=== PATIENT | male | born 1955 | race Caucasian/White ===

== ENCOUNTER 2023-01-11 12:46 | Inpatient (IN) ==
[2023-01-11] MEDS ORDERED: NS 0.9% 1000 ml BAG 1,000 ML IV ONE (12:54)
[2023-01-11] MEDS ORDERED: Lorazepam PYXIS KEY PRN (12:55)
[2023-01-11 13:22] LABS: ABS Eosinophils 0.1 10^3/uL (0.0-0.5); ABS Lymphocytes 1.1 10^3/uL (1.0-4.8); ABS Monocytes 0.5 10^3/uL (0.0-1.1); ABS Neutrophils 2.2 10^3/uL (1.5-7.6); ABS Nucleated RBC 0.01 10^3/ul; Eosinophil % 2.4 %; Hematocrit 31.7 % (38-53); Hemoglobin 11.1 g/dL (13.2-16.3); Lymphocyte % 29.3 %; Mean Corpuscular Hemoglobin 32.1 pg (27-33); Mean Corpuscular Volume 91.6 fL (80-97); Mean Platelet Volume 8.7 fL (7.5-11.2); Nucleated Red Blood Cells % 0.2 /100 WBC (0.0-0.4); Platelet Count 149 10^3/uL (150-450); Red Blood Count 3.46 10^6/uL (4.06-5.63); Red Cell Distribution Width 15.5 % (12-17); White Blood Count 3.9 10^3/uL (3.6-10.2)
[2023-01-11] MEDS: Haloperidol 5 mg/ml SDV IV/IM 5 MG/ML AMP IV SLOW PU ONE ×2 (13:23→13:40)
[2023-01-11] MEDS: LORazepam 2 mg VIAL 1 ml IV PUSH ONE ×2 (13:23→13:40)
[2023-01-11 13:39] LABS: ALT 11 U/L (7-52); AST 16 U/L (13-39); Albumin 3.8 g/dL (3.2-5.2); Albumin/Globulin Ratio 1.9 (1-3); Alkaline Phosphatase 68 U/L (35-149); Anion Gap 5 mmol/L (2-16); Blood Urea Nitrogen 22 mg/dL (6-24); CO2 Carbon Dioxide 30 mmol/L (22-32); Calcium 8.8 mg/dL (8.6-10.3); Chloride 108 mmol/L (101-111); Creatinine, Serum 0.87 mg/dL (0.67-1.17); Glucose 92 mg/dL (70-100); Potassium 3.9 mmol/L (3.5-5.0); Sodium 143 mmol/L (135-145); Total Protein 5.8 g/dL (6.4-8.9); eGFR CKD-EPI 95.8 (>60)
[2023-01-11 14:06] LABS: Alcohol, S < 13 mg/dL (<13)
[2023-01-11 14:13] LABS: TSH Ultra Thyroid Stim Horm 1.58 mcIU/mL (0.34-5.60)
[2023-01-11] MEDS ORDERED: Polyethylene Glycol 3350 17 GM PACKET PO PRN (17:05)
[2023-01-11] MEDS ORDERED: Senna TAB 8.6 mg TAB PO PRN (17:05)
[2023-01-11] MEDS ORDERED: Haloperidol LIQ ORALSYR 2 MG/ML PO PRN ×2 (17:11→17:59)
[2023-01-12] MEDS: OLANZapine 5 mg TAB *ODT PO SCH ×3 (01:06→22:14)
[2023-01-12] MEDS: Haloperidol 5 mg/ml SDV IV/IM 5 MG/ML AMP IV SLOW PU PRN ×3 (01:19→15:13)
[2023-01-12] MEDS: Morphine ORAL CONCENTRATE 5 MG/0.25 ML ORAL.SYRIN SL PRN ×2 (01:28→12:38)
[2023-01-12] MEDS ORDERED: Haloperidol 5 mg/ml SDV IV/IM 5 MG/ML AMP IV SLOW PU ONE ×2 (03:23→18:12)
[2023-01-12 04:50] LABS: Urine Appearance Clear; Urine Bilirubin Negative (Negative); Urine Blood Negative (Negative); Urine Color Yellow; Urine Glucose Negative (Negative); Urine Ketones Negative (Negative); Urine Nitrite Negative (Negative); Urine Protein Negative (Negative); Urine Specific Gravity 1.018 (1.002-1.030); Urine Urobilinogen Negative (Negative)
[2023-01-12] MEDS ORDERED: Magnesium Hydroxide LIQ 30 ML UDC PO PRN (12:26)
[2023-01-12] MEDS: Morphine ORAL CONCENTRATE 5 MG/0.25 ML ORAL.SYRIN SL SCH ×2 (12:50→17:33)
[2023-01-12] MEDS: Acetaminophen IV 1 GM/100ML 1,000 MG/100 ML BAG IV SCH ×2 (15:44→20:11)
[2023-01-12 17:36] VITALS: BP 189/83
[2023-01-12] MEDS: Haloperidol LIQ ORALSYR 2 MG/ML PO PRN (18:09)
[2023-01-12] MEDS: Simethicone SUSP ORALSYR 66.66 MG/ML PO SCH ×2 (18:29→22:14)
[2023-01-13] MEDS: Morphine ORAL CONCENTRATE 5 MG/0.25 ML ORAL.SYRIN SL PRN ×2 (01:34→11:11)
[2023-01-13] MEDS: Acetaminophen IV 1 GM/100ML 1,000 MG/100 ML BAG IV SCH ×4 (01:34→19:38)
[2023-01-13] MEDS: Morphine ORAL CONCENTRATE 5 MG/0.25 ML ORAL.SYRIN SL SCH ×2 (01:52→05:17)
[2023-01-13] MEDS: Haloperidol 5 mg/ml SDV IV/IM 5 MG/ML AMP IV SLOW PU PRN (07:38)
[2023-01-13] MEDS: Senna TAB 8.6 mg TAB PO SCH (08:48)
[2023-01-13] MEDS: Simethicone SUSP ORALSYR 66.66 MG/ML PO SCH ×4 (08:48→22:01)
[2023-01-13] MEDS: OLANZapine 5 mg TAB *ODT PO SCH (08:48)
[2023-01-13] MEDS: Polyethylene Glycol 3350 17 GM PACKET PO SCH (08:48)
[2023-01-13] MEDS: Haloperidol LIQ ORALSYR 2 MG/ML PO PRN ×2 (09:20→14:17)
[2023-01-13] MEDS: Morphine 2 MG/ML SYRINGE IV PRN ×2 (12:15→13:14)
[2023-01-13] MEDS ORDERED: Haloperidol 5 mg/ml SDV IV/IM 5 MG/ML AMP IM PRN (13:38)
[2023-01-13] MEDS ORDERED: Haloperidol 5 mg/ml SDV IV/IM 5 MG/ML AMP IM SCH ×2 (15:00→16:30)
[2023-01-13] MEDS ORDERED: Morphine 2 MG/ML SYRINGE IV SCH (15:30)
[2023-01-13] MEDS: Haloperidol 5 mg/ml SDV IV/IM 5 MG/ML AMP IM SCH (18:15)
[2023-01-13] MEDS: Valproic Acid IV 375 MG in NS 0.9% 100 ml BAG 100 ML IVPB SCH ×2 (18:15→21:56)
[2023-01-14] MEDS: Haloperidol 5 mg/ml SDV IV/IM 5 MG/ML AMP IM SCH ×4 (00:40→18:15)
[2023-01-14] MEDS: Acetaminophen IV 1 GM/100ML 1,000 MG/100 ML BAG IV SCH ×3 (01:48→13:39)
[2023-01-14] MEDS: Valproic Acid IV 375 MG in NS 0.9% 100 ml BAG 100 ML IVPB SCH (04:00)
[2023-01-14] MEDS: Simethicone SUSP ORALSYR 66.66 MG/ML PO SCH ×2 (08:22→13:45)
[2023-01-14] MEDS: Senna TAB 8.6 mg TAB PO SCH (08:22)
[2023-01-14] MEDS: Polyethylene Glycol 3350 17 GM PACKET PO SCH (08:22)
[2023-01-14] MEDS ORDERED: Valproic Acid IV 375 MG in NS 0.9% 100 ml BAG 100 ML IVPB SCH (10:00)
[2023-01-14] MEDS ORDERED: Scopolamine 1 mg/72hr PATCH TRANSDERM SCH (15:00)
[2023-01-14] MEDS: Morphine 2 MG/ML SYRINGE IV PRN ×3 (16:31→20:39)
[2023-01-14] MEDS ORDERED: Lorazepam PYXIS KEY PRN (22:02)
[2023-01-14] MEDS ORDERED: LORazepam 2 mg VIAL 1 ml IV PUSH ONE (22:02)
[2023-01-14] MEDS ORDERED: LORazepam 2 mg VIAL 1 ml ONE (22:06)
[2023-01-15] MEDS: Morphine 2 MG/ML SYRINGE IV PRN ×5 (00:15→13:49)
[2023-01-15] MEDS: Haloperidol 5 mg/ml SDV IV/IM 5 MG/ML AMP IM SCH ×5 (00:19→18:32)
[2023-01-16] MEDS: Haloperidol 5 mg/ml SDV IV/IM 5 MG/ML AMP IM SCH (00:01)
[2023-01-16] MEDS ORDERED: Haloperidol 5 mg/ml SDV IV/IM 5 MG/ML AMP IM SCH (00:14)
[2023-01-16] MEDS ORDERED: Atropine 1% (ORAL/SL) 15 ML BTL SL PRN (00:16)
== END 2023-01-16 04:07 | disposition expired | DRG 862 ==
LOC: ED 12:46 → EDHOLD 12:46 → MED 01-12 17:09 → SUATTDRO 01-13 12:30
PROVIDERS: ADMIT Internal Medicine; ATTEND Internal Medicine